=== PATIENT | male | born 1960 | race African-American/Black ===

== ENCOUNTER 2018-11-13 21:12 | Emergency (ER) | payer MEDICARE, MEDICAID ==
[~2018-11-13] VITALS: Ht 170.1 cm; Wt 104.3 kg
[~2018-11-13 21:12] MED LIST: DIABETA1.25 MG; FLEXERIL10 MG PO; METFORMIN750 MG; MOTRIN800 MG PO; PRILOSEC OTC20 MG; PRINIVIL5 MG; SIMVASTATIN5 MG; VICODIN 5/500 505 MG PO
[2018-11-13 21:18] VITALS: BP 142/67
[2018-11-13 23:03] LABS: BASO # 0.1 10*3/uL (0.0-0.1); BASO % 0.7 % (0.0-1.0); EOS # 0.3 10*3/uL (0.0-0.4); EOS % 3.6 % (1.0-4.0); HEMATOCRIT 38.8 % (42.0-52.0); HEMOGLOBIN 13.3 g/dl (14.0-18.0); LYMPH # 4.2 10*3/uL (1.3-4.4); LYMPH % 44.2 % (27.0-41.0); MEAN CELL VOLUME 96.3 fl (80.0-94.0); MEAN CORPUSCULAR HGB CONC 34.3 g/dl (33.0-37.0); MEAN PLATELET VOLUME 10.8 fl (9.6-12.3); MONO # 0.6 10*3/uL (0.1-1.0); MONO % 6.1 % (3.0-9.0); NEUT # 4.3 10*3/uL (2.3-7.9); NEUT % 45.3 % (47.0-73.0); PLATELET COUNT AUTOMATED 188 10*3/uL (130-400); RED BLOOD COUNT 4.03 10*6/uL (4.50-5.90); RED CELL DISTRI WIDTH 12.1 % (0-14.5); WHITE BLOOD COUNT 9.5 10*3/uL (4.8-10.8)
[2018-11-13 23:20] LABS: ALBUMIN 3.7 gm/dl (3.1-4.5); ALKALINE PHOSPHATASE 84 U/L (45-117); BUN 17 mg/dl (7-24); CHLORIDE 111 mmol/L (98-107); CREATININE 1.34 mg/dL (0.70-1.30); POTASSIUM 4.2 mmol/L (3.5-5.1); SGOT/AST 16 IU/L (3-35); SODIUM 140 mmol/L (136-145)
[2018-11-13 23:24] LABS: SGPT/ALT 31 U/L (12-78)
[2018-11-13] MEDS ORDERED: CYCLOBENZAPRINE10 MG PO (23:31)
== END 2018-11-13 23:37 | disposition home or self-care (01) ==
LOC: ED 21:12
PROVIDERS: Student in an Organized Health Care Education/Training Program
DX: M79.604 Pain in right leg (principal); M79.605 Pain in left leg; M79.652 Pain in left thigh; M79.651 Pain in right thigh; E11.9 Type 2 diabetes mellitus without complications; Z91.010 Allergy to peanuts